=== PATIENT | female | born 1965 | race Caucasian/White ===

== ENCOUNTER 2019-05-03 12:51 | Emergency (ER) | payer OTHER, MEDICARE, SELFPAY ==
--- NOTE | ~2019-05-03 | XR_ITS ---
EXAMINATION: XR ankle LT min 3V, XR foot LT min 3V EXAM DATE: 05/03/2019 13:49 INDICATION: Initial encounter following injury, with pain of the left foot and ankle. TECHNIQUE: Left foot dorsoplantar, lateral and oblique projections obtained and reviewed. Left ankle frontal, lateral and oblique projections obtained and reviewed. There is no prior study for compari son. FINDINGS: The left ankle mortise appears intact. There is an acute transverse fracture through t he base of the left fifth metatarsal bone, a Mcwilliams type fracture. No displacement. Closed, posttrauma tic fracture . There is overlying soft tissue swelling. No other acute findings. Small calcaneal s purs. Sequela from prior medial malleolar avulsion injury. IMPRESSION: Acute left Mcwilliams fracture. Reviewed, dictated and finalized at location [facility] IMPRESSION: Acute left Mcwilliams fracture.
[2019-05-03 13:08] VITALS: BP 136/88; PULSE 95; RESP 18; TEMP 36.7; O2SAT 98
--- NOTE | 2019-05-03 13:31 | ED.GENADULT ---
HPI - General Adult General Chief complaint: Extremity Injury, Lower Stated complaint: Left Ankle Pain Time Seen by Provider: 05/03/19 13:31 Source: patient and RN notes reviewed Mode of arrival: ambulatory Limitations: no limitations History of Present Illness HPI narrative: This is a pleasant 53 years old female presented office for evaluation of left foot injury since yesterday. She invertly rolled her left ankle while she was walking. She wore heels ~1-2inches high. She did not fall down completely to the ground. Complains of constant pain and worse with weight bearing. Denies history of surgery in the same foot in the past. She elevated her foot, and placed ice on it last night. She also takes tramadol daily for chronic back pain. Related Data Home Medications Medication Instructions Recorded Confirmed duloxetine 60 mg PO DAILY 05/03/19 05/03/19 ezetimibe-simvastatin 1 tablet PO DAILY 05/03/19 05/03/19 folic acid 1 mg PO DAILY 05/03/19 05/03/19 meloxicam 15 mg PO DAILY 05/03/19 05/03/19 metformin 1,000 mg PO DAILY 05/03/19 05/03/19 methotrexate sodium 2.5 mg PO DAILY 05/03/19 05/03/19 vilazodone [Viibryd] 20 mg PO DAILY 05/03/19 05/03/19 Allergies Allergy/AdvReac Type Severity Reaction Status Date / Time chlorphentermine Allergy Unknown Verified 12/19/12 09:37 codeine Allergy Unknown Verified 11/19/10 13:39 dextromethorphan Allergy Unknown Verified 12/19/12 09:37 phenylephrine Allergy Unknown Verified 12/19/12 09:37 pseudoephedrine Allergy Unknown Verified 12/19/12 09:37 sulfanilamide Allergy Unknown Verified 11/19/10 13:39 Review of Systems Review of Systems: Narrative: CONSTITUTIONAL: Denies fever GASTROINTESTINAL: Denies abdominal pain, nausea, vomiting, diarrhea. GENITOURINARY: Denies urinary symptoms or discharge SKIN: Denies rash MUSCULOSKELETAL: Reports left ankle and foot pain, swollen NEUROLOGIC: Denies numbness, or focal weakness. [facility] Family History Family History (Updated 12/19/12 @ 09:37 by DOCTOR UNKNOWN) Other Diabetes mellitus Family history of arthritis Hypertension Social History Social History Smoking status: Never smoker Alcohol intake: current Comments At time of signature, I agree with nursing past medical, surgical, social and family history. There is no relevant family history pertinent to the presenting complaint. Exam Narrative: Exam Narrative: GENERAL: This is a well-nourished, well-developed patient, in no apparent distress. NEURO: awake, alert, and oriented to person, place and time. There were no obvious focal neurologic abnormalities. BACK: Tenderness in the paraspinous muscles in the lumbar/sacral area. No tenderness over the spinous processes of the lumbar vertebrae. LEGS: Normal strength including dorsi-flexion and plantar flexion of the feet. EXTREMITIES: Left ankle is swollen and tender over the lateral aspect but the skin is intact and there is no ligamentous instability. There is no deformity. There is also tenderness and swelling over the dorsum of the foot. Range of motion limited secondary to pain. No deformity. The skin is intact. Course Vital Signs Vital signs: Vital Signs Temperature 98.1 F 05/03/19 13:08 Pulse Rate 95 05/03/19 13:08 Respiratory Rate 18 05/03/19 13:08 Blood Pressure 136/88 05/03/19 13:08 Pulse Oximetry 98 05/03/19 13:08 Temperature 98.1 F 05/03/19 13:08 Pulse Rate 95 05/03/19 13:08 Respiratory Rate 18 05/03/19 13:08 Blood Pressure 136/88 05/03/19 13:08 Pulse Oximetry 98 05/03/19 13:08 Medical Decision Making MDM Narrative Medical decision making narrative: Discharge instructions reviewed with patient, as well as provided in writing per nursing staff. The instructions also include specific and strict return/GO TO THE ER as well as f/u information. All questions have been answered, and the patient's spouse deny any further questions with discharge and discharge plan. Diff
== END 2019-05-03 14:18 | disposition home or self-care (01) ==
PROVIDERS: Emergency Provider Nurse Practitioner
DX: S92.355A Nondisplaced fracture of fifth metatarsal bone, left foot, initial encounter for closed fracture (principal); S99.912A Unspecified injury of left ankle, initial encounter; X50.9XXA Other and unspecified overexertion or strenuous movements or postures, initial encounter; I10 Essential (primary) hypertension; G47.30 Sleep apnea, unspecified; M19.90 Unspecified osteoarthritis, unspecified site; M79.7 Fibromyalgia; M06.9 Rheumatoid arthritis, unspecified; E11.9 Type 2 diabetes mellitus without complications
CPT/HCPCS: 73610; 73630; 99204; G0463

== ENCOUNTER 2019-08-07 12:29 | Emergency (ER) | payer OTHER, MEDICARE, SELFPAY ==
[2019-08-07 13:08] VITALS: BP 131/78; PULSE 88; RESP 16; TEMP 36.6; O2SAT 98
--- NOTE | 2019-08-07 13:19 | ED.SKABFB ---
HPI - Skin/Abscess/Foreign Bdy General Chief complaint: Skin/Abscess/Foreign Body Stated complaint: rash under breasts/torso Time Seen by Provider: 08/07/19 13:05 Source: patient and RN notes reviewed Mode of arrival: ambulatory Limitations: no limitations History of Present Illness HPI narrative: Patient presents today complaining of a pruritic rash in the skin folds under her breast and in her groin. Symptoms began 2 days ago and have been worsening since onset. She has been taking Benadryl for the itching with some relief. She was started on methotrexate for her rheumatoid arthritis 4 to 5 months ago. 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 States she has not changed any household products to include laundry detergents or fabric softeners, lotions or body washes. MD complaint: rash Related Data Home Medications Medication Instructions Recorded Confirmed duloxetine 60 mg PO DAILY 05/03/19 05/03/19 ezetimibe-simvastatin 1 tablet PO DAILY 05/03/19 05/03/19 folic acid 1 mg PO DAILY 05/03/19 05/03/19 meloxicam 15 mg PO DAILY 05/03/19 05/03/19 metformin 1,000 mg PO DAILY 05/03/19 05/03/19 methotrexate sodium 2.5 mg PO DAILY 05/03/19 05/03/19 vilazodone [Viibryd] 20 mg PO DAILY 05/03/19 05/03/19 apixaban [Eliquis] mg 08/07/19 tramadol mg 08/07/19 Allergies Allergy/AdvReac Type Severity Reaction Status Date / Time chlorphentermine Allergy Unknown Verified 12/19/12 09:37 codeine Allergy Unknown Verified 11/19/10 13:39 dextromethorphan Allergy Unknown Verified 12/19/12 09:37 phenylephrine Allergy Unknown Verified 12/19/12 09:37 pseudoephedrine Allergy Unknown Verified 12/19/12 09:37 sulfanilamide Allergy Unknown Verified 11/19/10 13:39 Review of Systems Review of Systems: Narrative: CONSTITUTIONAL: Denies body aches, fever, chills, or sweats. EYES: Denies visual changes, redness, or discharge. ENT: Denies rhinorrhea, congestion, sore throat, or otalgia. CARDIOVASCULAR: Denies chest pain, palpitations, or edema. RESPIRATORY: Denies cough or dyspnea. GASTROINTESTINAL: Denies abdominal pain, nausea, vomiting, or diarrhea. GENITOURINARY: Denies dysuria or hematuria. SKIN: Denies wounds.+ Pruritic rash MUSCULOSKELETAL: Denies back pain, joint pain, or myalgia. NEUROLOGIC: Denies headache, numbness, tingling, or weakness. PSYCH: Denies depression or anxiety. [facility] Past Medical History Medical History (Updated 08/07/19 @ 14:36 by Eduarda Orozco, [facility], ) Depression Pulmonary embolism Rheumatoid arthritis Family History Family History (Updated 12/19/12 @ 09:37 by DOCTOR UNKNOWN) Other Diabetes mellitus Family history of arthritis Hypertension Social History Social History Smoking status: Never smoker Alcohol intake: current Comments At time of signature, I have reviewed and agree with nursing past medical, surgical, social and family history unless otherwise noted. Please see nursing chart for further information. There is no relevant family history pertinent to the presenting complaint Exam Narrative: Exam Narrative: GENERAL: Well-appearing, well-nourished, and in no acute distress. HEAD: Normocephalic, atraumatic. EYES: EOMI. No redness or drainage. Conjunctivae normal. ENT: Mucous membranes pink and moist. No facial swelling NECK: Normal AROM. Supple. No lymphadenopathy. CHEST: No respiratory distress. Clear to auscultation. HEART: Regular rate and rhythm. EXTREMITIES: Normal range of motion. No edema. SKIN: Warm, dry. Capillary refill normal. Normal skin turgor. + Erythematous macular rash in the breast folds, to the lower abdomen, and most of the anterior right upper leg as well as the left groin. Nontender. Blanchable. No drainage or wounds noted. NEURO: No focal deficits. Alert and oriented x3. Gait steady. PSYCH: Normal affect. No signs of depression or anxiety. Course Vital Signs Vital signs: Vital Signs Temperature 97.8 F
== END 2019-08-07 13:28 | disposition home or self-care (01) ==
PROVIDERS: Emergency Provider Nurse Practitioner
DX: L27.0 Generalized skin eruption due to drugs and medicaments taken internally (principal); T50.905A Adverse effect of unspecified drugs, medicaments and biological substances, initial encounter; M06.9 Rheumatoid arthritis, unspecified; F32.9 Major depressive disorder, single episode, unspecified; Z86.711 Personal history of pulmonary embolism; Z79.84 Long term (current) use of oral hypoglycemic drugs; Z79.01 Long term (current) use of anticoagulants; I10 Essential (primary) hypertension; G47.30 Sleep apnea, unspecified; M19.90 Unspecified osteoarthritis, unspecified site; E11.9 Type 2 diabetes mellitus without complications; F41.9 Anxiety disorder, unspecified
CPT/HCPCS: 99213; G0463